=== PATIENT | female | born 1980 | race American Indian/Alaskan Native ===

== ENCOUNTER 2020-02-27 17:44 | Emergency (ER) | payer SELFPAY ==
[2020-02-27 19:17] VITALS: BP 122/75
--- NOTE | 2020-02-27 19:29 | Emergency Department Report ---
Chief Complaint: Wound/Laceration Stated Complaint: LEFT ANKLE PAINS Time Seen by Provider: 02/27/20 19:18 - HPI History of Present Illness: 39-year-old female presents to the ED complaining of prolonged healing wound to her left foot. Patient states she has had worn for about 2 weeks now and it is not really healing like it should. - ROS Review of Systems: As noted in HPI - Exam Vital Signs: Vital Signs 02/27/20 19:10 Temperature 98 F Pulse Rate 80 Respiratory 18 Rate Blood Pressure 122/75 O2 Sat by Pulse 96 Oximetry Physical Exam: gENERAL: Alert and oriented x3, no apparent distress, Normal Gait, atraumatic. HEAD: Head is normocephalic and a-traumatic. SKIN: 2 cm healing wound noted. Left medial ankle. Nonerythematous, no swelling, warm and dry, No other lesions, No ulceration or induration present. MSE screening note: Focused history and physical exam performed. Due to findings the following was ordered: ED Medical Decision Making - Medical Decision Making 39-year-old female who presented with prolonged healing wound to the left medial aspect of the foot. Wound looks noninfected looks like it is healing. Patient is not diabetic so cannot be an ulcer. Discussed follow-up with primary care physician. Discussed continued care with topical antibiotic cream Vital signs are normal she is in no acute distress. ED Disposition for MSE Clinical Impression: Foot abrasion, non-infected Disposition: Z-07 MED SCREENING EXAM-LEFT Is pt being admited?: No Does the pt Need Aspirin: No Condition: Stable Instructions: Acute Wound Care (ED), Insect Bite or Sting (ED) Additional Instructions: Make sure to follow up with the primary care physician as discussed. If you have any worsening symptoms or develop new symptoms please return to ED immediately. Referrals: PRIMARY CARE, [Primary Care Provider] - 3-5 Days [facility] [Outside] - 3-5 Days [facility] [Outside] - 3-5 Days Forms: Work/School Release Form(ED) Time of Disposition: 19:42
== END 2020-02-27 19:19 | disposition left against medical advice (07) ==
LOC: ED 17:44
DX: M25.572 Pain in left ankle and joints of left foot (principal); Z53.21 Procedure and treatment not carried out due to patient leaving prior to being seen by health care provider